=== PATIENT | male | born 1975 | race Caucasian/White ===

== ENCOUNTER 2017-11-15 14:23 | Emergency (ER) | payer OTHER ==
[~2017-11-15] VITALS: Ht 172.7 cm; Wt 73.2 kg
[2017-11-15] MEDS ORDERED: CYCL-1 PO (16:28)
[2017-11-15 16:51] VITALS: BP 120/78
== END 2017-11-15 16:52 | disposition home or self-care (01) ==
LOC: ER 14:24
DX: S09.90XA Unspecified injury of head, initial encounter (principal); M54.2 Cervicalgia; M54.5 Low back pain; R07.81 Pleurodynia; F12.90 Cannabis use, unspecified, uncomplicated; Z79.899 Other long term (current) drug therapy; V89.2XXA Person injured in unspecified motor-vehicle accident, traffic, initial encounter; Y93.89 Activity, other specified; Y92.89 Other specified places as the place of occurrence of the external cause; Y99.8 Other external cause status
CPT/HCPCS: 70450; 71045; 72070; 72100; 72125; 93005; 99284

== ENCOUNTER 2020-09-05 10:17 | Emergency (ER) | payer MEDICARE, OTHER ==
[~2020-09-05] VITALS: Ht 172.7 cm; Wt 88.2 kg
[~2020-09-05 10:17] MED LIST: CYCL-1 PO
[2020-09-05] MEDS ORDERED: magnesium 2GM in 50ml NS 50 ML IV ONE (10:25)
[2020-09-05] MEDS ORDERED: normal saline 1000ML IV soln IVB ONE (10:25)
[2020-09-05] MEDS ORDERED: LORazepam 2 mg/ml vial IV ONE (10:25)
[2020-09-05 11:08] LABS: BASOPHILS # (AUTO) 0.1 X10'3 (0-0.2); BASOPHILS % (AUTO) 0.9 % (0-1); EOSINOPHILS # (AUTO) 0.3 X10'3 (0-0.9); EOSINOPHILS % (AUTO) 3.3 % (0-6); HEMOGLOBIN 15.8 g/dl (14.0-17.9); LYMPHOCYTES # (AUTO) 1.8 X10'3 (1.1-4.8); MEAN CORPUSCULAR HEMOGLOBIN 29.9 PG (27.0-31.0); MEAN CORPUSCULAR HGB CONC 33.6 g/dL (33.0-36.5); MEAN CORPUSCULAR VOLUME 89.1 FL (78-98); MEAN PLATELET VOLUME 8.2 FL (7.4-10.4); MONOCYTES # (AUTO) 0.8 X10'3 (0-0.9); NEUTROPHILS # (AUTO) 4.8 X10'3 (1.8-7.7); NEUTROPHILS % (AUTO) 62.8 % (42-75); PLATELET COUNT 222 X10'3 (140-440); RED BLOOD COUNT 5.28 X10'6 (4.70-6.10); RED CELL DISTRIBUTION WIDTH 15.2 % (11.5-14.5); WHITE BLOOD COUNT 7.7 X10'3 (4.5-11.0)
[2020-09-05 11:27] LABS: ALANINE AMINOTRANSFERASE 28 U/L (12-78); ALBUMIN 3.5 G/DL (3.4-5.0); ALKALINE PHOSPHATASE 126 IU/L (46-116); ANION GAP 12 (8-16); ASPARTATE AMINO TRANSFERASE 15 U/L (10-37); BILIRUBIN,TOTAL 0.2 MG/DL (0.1-1.0); BLOOD UREA NITROGEN 28 MG/DL (7-18); CALCIUM 8.4 MG/DL (8.5-10.1); CHLORIDE 106 MMOL/L (99-107); GLUCOSE 101 MG/DL (70-104); POTASSIUM 4.2 MMOL/L (3.5-5.1); SODIUM 139 MMOL/L (135-145); TOTAL CARBON DIOXIDE 21.4 MMOL/L (24-32); TOTAL PROTEIN 7.1 G/DL (6.4-8.2); eGFR 82 ML/MIN
[2020-09-05 11:28] LABS: CREATINE KINASE 55 U/L (39-308); ETHANOL < 0.010 GM/DL (0.0-0.010)
[2020-09-05 12:18] VITALS: BP 126/84
[2020-09-05 12:53] LABS: CLARITY,URINE CLEAR (Clear); COLOR,URINE YELLOW (Yellow); GLUCOSE, URINE NEGATIVE (Neg); KETONES,URINE NEGATIVE (Neg); LEUKOCYTE ESTERASE ,URINE TRACE (Neg); NITRITES, URINE NEGATIVE (Neg); OCCULT BLOOD,URINE NEGATIVE (Neg); PH,URINE 5.5 (4.8-8.0); PROTEIN,URINE NEGATIVE (Neg); UROBILINOGEN,URINE 0.2 E.U/dL (0.2-1.0)
[2020-09-05 12:54] LABS: UA COLLECTION TYPE VOIDED
[2020-09-05 13:01] LABS: RBC,URINE NONE SEEN /HPF (0-2)
[2020-09-05 13:02] LABS: BACTERIA,URINE FEW /HPF (Neg); MUCUS STRANDS NONE SEEN /LPF (Neg); SQUAMOUS EPITHELIAL CELL,UR FEW /LPF (FEW)
[2020-09-05 13:08] LABS: URINE AMPHETAMINE SCREEN NEGATIVE (Neg); URINE BARBITUATE SCREEN NEGATIVE (Neg); URINE BENZODIAZEPINES SCREEN NEGATIVE (Neg); URINE CANNABINOID SCREEN POSITIVE (Neg); URINE COCAINE SCREEN NEGATIVE (Neg); URINE METHADONE SCREEN NEGATIVE (Neg); URINE OPIATE SCREEN NEGATIVE (Neg); URINE PHENCYCLIDINE SCREEN NEGATIVE (Neg)
== END 2020-09-05 12:20 | disposition home or self-care (01) ==
LOC: ER 10:17
DX: R56.9 Unspecified convulsions (principal); F31.9 Bipolar disorder, unspecified; F12.90 Cannabis use, unspecified, uncomplicated; Z79.899 Other long term (current) drug therapy
CPT/HCPCS: 36415; 70450; 80053; 80305; 80320; 81001; 82550; 85025; 87088; 93005; 96361; 96365; 96375; 99285; J2060; J3475; J7030

== ENCOUNTER 2024-02-05 17:18 | Emergency (ER) | payer MEDICARE ==
[~2024-02-05] VITALS: Ht 172.7 cm; Wt 79.8 kg
[2024-02-05] MEDS ORDERED: RISP0.5T74 PO (18:10)
[2024-02-05] MEDS: risperiDONE 0.5mg tablet PO ONE (18:29)
[2024-02-05 18:32] VITALS: BP 134/74; PULSE 88; RESP 14; TEMP 98.5; O2SAT 99
== END 2024-02-05 18:34 | disposition home or self-care (01) ==
LOC: ER 17:19
DX: F25.8 Other schizoaffective disorders (principal); F31.9 Bipolar disorder, unspecified; F12.90 Cannabis use, unspecified, uncomplicated; Z79.899 Other long term (current) drug therapy
CPT/HCPCS: 99283